=== PATIENT | female | born 1940 | race Two or more races ===

== ENCOUNTER 2024-12-18 14:02 | Emergency (ER) | payer OTHER ==
[~2024-12-18] VITALS: Ht 162.6 cm; Wt 63.5 kg
[2024-12-18] MEDS ORDERED: LEVOTHYROXINE25 MCG (14:21)
[2024-12-18] MEDS ORDERED: IPRATROPIUM BROMIDE 0.5 MG/2.5 ML AMPUL.NEB IH SCH (15:00)
[2024-12-18] MEDS ORDERED: METHYLPREDNISOLONE SOD SUCC 125 MG VIAL IV ONE (15:00)
[2024-12-18] MEDS ORDERED: LEVALBUTEROL HCL 1.25 MG/3 ML SOLUTION IH SCH (15:00)
[2024-12-18] MEDS ORDERED: GUAIFENESIN/DEXTROMETHORPHAN 100MG/10ML BLIST.PACK PO ONE ×2 (15:00→15:35)
[2024-12-18] MEDS ORDERED: CEFTRIAXONE SODIUM 2,000 MG VIAL IV ONE (15:30)
[2024-12-18] MEDS ORDERED: METHYLPREDNISOLONE SOD SUCC 125 MG VIAL ONE (15:35)
[2024-12-18] MEDS ORDERED: CEFTRIAXONE SODIUM 2,000 MG VIAL ONE (15:35)
[2024-12-18] MEDS ORDERED: WATER FOR INJ.,BACTERIOSTATIC 30 ML VIAL IJ ONE (15:36)
[2024-12-18] MEDS ORDERED: IPRATROPIUM BROMIDE 0.5 MG/2.5 ML AMPUL.NEB IH ONE (15:46)
[2024-12-18] MEDS ORDERED: LEVALBUTEROL HCL 1.25 MG/3 ML SOLUTION IH ONE (15:46)
[2024-12-18 15:59] LABS: ABG PH 7.427 (7.35-7.45); ABG PO2 95.1 mmHg (80-100); ABG pCO2 36.8 mmHg (35-45); BASE EXCESS -0.2 mmol/l; BICARBONATE 23.7 mmol/l (23-25); SaO2 97.6 %; Tco2 24.8 mmol/l
[2024-12-18 16:07] LABS: HEMATOCRIT 38.4 % (36.0-45.00); MEAN CELL VOLUME 88.2 fL (80.00-100.00); MEAN CORPUSCULAR HEMOGLOBIN 29.8 pg (27.00-32.0); MEAN CORPUSCULAR HGB CONC 33.7 g/dl (32.0-36.0); PLATELET COUNT 362 K/uL (150-450); RED BLOOD COUNT 4.35 M/uL (4.00-6.00); RED CELL DISTRIBUTION WIDTH 13.2 % (11.5-14.5)
[2024-12-18 16:07] LABS: allen test SATISFACTORY; o2 21 %; puncture site RADIAL RIGHT
[2024-12-18 16:41] LABS: ALBUMIN 3.7 gm/dL (3.4-5.0); BILIRUBIN TOTAL 0.82 mg/dL (0.3-1.2); CALCIUM 9.6 mg/dL (8.5-10.1); CREATININE SERUM 0.76 mg/dL (0.55-1.02); GFR 72.33; POTASSIUM 4.11 mEq/L (3.5-5.1); TOTAL PROTEIN 7.7 gm/dL (6.4-8.2)
[2024-12-18] MEDS ORDERED: XOPENEX CO1.25 MG/0. IH (17:52)
[2024-12-18] MEDS ORDERED: MEDROLPACK PO (17:52)
[2024-12-18] MEDS ORDERED: TUSSIN DM LIQU118 ML PO (17:52)
[2024-12-18] MEDS ORDERED: IPRATROPIU0.2 MG/1 M IH (17:54)
== END 2024-12-18 18:13 ==
LOC: ER 14:03
PROVIDERS: General Practice
DX: J06.9 Acute upper respiratory infection, unspecified (principal); J00 Acute nasopharyngitis [common cold]; Z20.822 Contact with and (suspected) exposure to COVID-19; E03.8 Other specified hypothyroidism; Z91.041 Radiographic dye allergy status
CPT/HCPCS: 36415; 71046; 71250; 82803; 94644; 96365; 99284; J0696; J3490